=== PATIENT | female | born 1935 | race Caucasian/White ===

== ENCOUNTER → 2016-11-08 | Outpatient (CLI) | payer MEDICARE, OTHER ==
[~2016-11-08] MED LIST: AMIT10TA13 PO; CORTIS10A AU; LIOT5 PO; PSEU30TA PO; SYNT75TA PO; VENTAER INH; ZITHTAB PO
[2016-11-08 09:55] LABS: MEAN CORPUSCULAR HEMOGLOBIN 31.1 PG (27.0-34.0); MEAN CORPUSCULAR HGB CONC 34.2 % (32.0-36.0); PLATELET COUNT 221 TH/MM3 (150-450); RED BLOOD COUNT 4.06 MIL/MM3 (4.00-5.30); RED CELL DISTRIBUTION WIDTH 13.7 % (11.6-17.2); REVIEW FLAG FINAL; WHITE BLOOD COUNT 4.5 TH/MM3 (4.0-11.0)
[2016-11-08 10:28] LABS: ALKALINE PHOSPHATASE 96 U/L (45-117); ALT (GPT) 23 U/L (10-53); ANION GAP 7 MEQ/L (5-15); AST (GOT) 20 U/L (15-37); BICARBONATE 29.6 MEQ/L (21.0-32.0); BLOOD UREA NITROGEN 11 MG/DL (7-18); CHLORIDE 99 MEQ/L (98-107); GLOMERULAR FILTRATION RATE 74 ML/MIN (>89); GLUCOSE,FASTING 84 MG/DL (74-99); HDL CHOLESTEROL 76.1 MG/DL (40.0-60.0); LDL CHOLESTEROL 110 MG/DL (0-99); POTASSIUM 4.1 MEQ/L (3.5-5.1); SODIUM (NA) 136 MEQ/L (136-145); TOTAL BILIRUBIN ADULT 1.6 MG/DL (0.2-1.0)
== END ==
LOC: PLAB 07:29
PROVIDERS: ATTEND Internal Medicine Interventional Cardiology
DX: M79.1 Myalgia (principal); E78.5 Hyperlipidemia, unspecified; I25.10 Atherosclerotic heart disease of native coronary artery without angina pectoris; E03.9 Hypothyroidism, unspecified; Z79.899 Other long term (current) drug therapy; R06.02 Shortness of breath; Z09 Encounter for follow-up examination after completed treatment for conditions other than malignant neoplasm
CPT/HCPCS: 36415; 80053; 80061; 82248; 82550; 84443; 85027

== ENCOUNTER → 2017-03-22 | Outpatient (CLI) | payer MEDICARE, OTHER ==
[2017-03-22 13:30] LABS: AUTOMATED NEUTROPHIL # 2.2 TH/MM3 (1.8-7.7); BASOPHIL % 0.8 % (0.0-2.0); EOSINOPHIL # 0.2 TH/MM3 (0-0.4); EOSINOPHIL % 3.9 % (0.0-4.0); HEMATOCRIT 37.8 % (35.0-46.0); HEMO FLAGS DIFF FINAL; LYMPH % 29.1 % (9.0-44.0); LYMPHOCYTE # 1.2 TH/MM3 (1.0-4.8); MEAN CELL VOLUME 93.4 FL (80.0-100.0); MEAN CORPUSCULAR HEMOGLOBIN 30.4 PG (27.0-34.0); MEAN CORPUSCULAR HGB CONC 32.5 % (32.0-36.0); MONO % 11.5 % (0.0-8.0); NEUT % 54.7 % (16.0-70.0); PLATELET COUNT 225 TH/MM3 (150-450); RED BLOOD COUNT 4.05 MIL/MM3 (4.00-5.30); RED CELL DISTRIBUTION WIDTH 14.3 % (11.6-17.2); WHITE BLOOD COUNT 4.1 TH/MM3 (4.0-11.0)
[2017-03-22 14:27] LABS: ANION GAP 8 MEQ/L (5-15); AST (GOT) 25 U/L (15-37); BICARBONATE 28.4 MEQ/L (21.0-32.0); BLOOD UREA NITROGEN 13 MG/DL (7-18); CHLORIDE 100 MEQ/L (98-107); GLOMERULAR FILTRATION RATE 85 ML/MIN (>89); GLUCOSE,FASTING 84 MG/DL (74-99); POTASSIUM 4.1 MEQ/L (3.5-5.1); SODIUM (NA) 136 MEQ/L (136-145)
[2017-03-22 14:38] LABS: ALKALINE PHOSPHATASE 89 U/L (45-117); ALT (GPT) 25 U/L (10-53); HDL CHOLESTEROL 77.8 MG/DL (40.0-60.0); LDL CHOLESTEROL 112 MG/DL (0-99); TOTAL BILIRUBIN ADULT 1.2 MG/DL (0.2-1.0)
== END ==
LOC: PLAB 07:59
PROVIDERS: ATTEND Family Medicine
DX: M79.1 Myalgia (principal); E78.5 Hyperlipidemia, unspecified; I25.10 Atherosclerotic heart disease of native coronary artery without angina pectoris; E03.9 Hypothyroidism, unspecified
CPT/HCPCS: 36415; 80053; 80061; 84443; 85025

== ENCOUNTER → 2017-07-17 | Outpatient (CLI) | payer MEDICARE, OTHER ==
[2017-07-17 11:50] LABS: AUTOMATED NEUTROPHIL # 2.1 TH/MM3 (1.8-7.7); BASOPHIL % 0.6 % (0.0-2.0); EOSINOPHIL # 0.2 TH/MM3 (0-0.4); EOSINOPHIL % 3.9 % (0.0-4.0); HEMATOCRIT 37.2 % (35.0-46.0); HEMO FLAGS DIFF FINAL; LYMPH % 32.4 % (9.0-44.0); LYMPHOCYTE # 1.3 TH/MM3 (1.0-4.8); MEAN CORPUSCULAR HEMOGLOBIN 30.9 PG (27.0-34.0); MEAN CORPUSCULAR HGB CONC 33.6 % (32.0-36.0); MONO % 10.8 % (0.0-8.0); NEUT % 52.3 % (16.0-70.0); PLATELET COUNT 236 TH/MM3 (150-450); RED BLOOD COUNT 4.05 MIL/MM3 (4.00-5.30); RED CELL DISTRIBUTION WIDTH 14.4 % (11.6-17.2)
[2017-07-17 12:04] LABS: ANION GAP 6 MEQ/L (5-15); AST (GOT) 23 U/L (15-37); BICARBONATE 28.5 MEQ/L (21.0-32.0); BLOOD UREA NITROGEN 16 MG/DL (7-18); CHLORIDE 103 MEQ/L (98-107); GLOMERULAR FILTRATION RATE 75 ML/MIN (>89); SODIUM (NA) 137 MEQ/L (136-145)
[2017-07-17 12:22] LABS: ALKALINE PHOSPHATASE 98 U/L (45-117); ALT (GPT) 23 U/L (10-53); GLUCOSE,FASTING 83 MG/DL (74-99); HDL CHOLESTEROL 75.9 MG/DL (40.0-60.0); LDL CHOLESTEROL 110 MG/DL (0-99); TOTAL BILIRUBIN ADULT 1.4 MG/DL (0.2-1.0)
== END ==
LOC: PLAB 07:47
PROVIDERS: ATTEND Family Medicine
DX: M79.1 Myalgia (principal); E78.5 Hyperlipidemia, unspecified; I25.10 Atherosclerotic heart disease of native coronary artery without angina pectoris; E03.9 Hypothyroidism, unspecified
CPT/HCPCS: 36415; 80053; 80061; 84443; 85025

== ENCOUNTER → 2017-08-07 | Day surgery (SDC) | payer MEDICARE, OTHER ==
[~2017-08-07] MED LIST changes: +BUPIVACAINE/EPINEPHRINE 0.25% PF 30 ML VIAL INFIL ONE; +LACTATED RINGER'S 1000 ML INJ 1,000 ML ONE; +MIDAZOLAM HCL 2 MG/2 ML VIAL ONE; +PROPOFOL 200 MG/20 ML AMP IV ONE; +ceFAZolin 2 GM PREMIX 50 ML ONE
--- NOTE | 2017-08-07 13:44 | TN ---
cc: FELICITY LOZANO M.D. DATE OF SURGERY: 08/07/2017 PREOPERATIVE DIAGNOSIS Left inguinal hernia. POSTOPERATIVE DIAGNOSIS Left inguinal hernia. PROCEDURE Open repair of left inguinal hernia with mesh. SURGEON Dr. Felicity Lozano. ANALYSIS ANALYST Ines Ballard, MS III ANESTHESIA General. INDICATIONS 82-year-old woman with complaints of a left inguinal hernia. Plans are made for operative repair. INTRAOPERATIVE FINDINGS Consistent with left direct inguinal hernia. Estimated blood loss minimal. DESCRIPTION OF PROCEDURE IN DETAIL The patient was identified as Roque Adams, taken to the operating room and placed in the supine position. Sequential compression devices were placed on bilateral lower extremities. Following induction of adequate general anesthesia with a laryngeal mask the left groin was prepped and draped in usual sterile fashion with Betadine. Proposed incision was made with a marking pen, infiltrated with local anesthetic. Incision was carried out with scalpel. Hemostasis was controlled with electrocautery. Dissection continued posteriorly through Alice's fascia to the level of the external oblique fascia. More local anesthetic was placed beneath the external oblique fascial fibers. They were opened in their direction with scalpel and Metzenbaum scissor. Underlying ilioinguinal nerve branch was reflected inferiorly and avoided. The round ligament was identified, from surrounding tissues, divided between clamps and ligated with 2-0 Vicryl ligature. The obvious direct hernia defect was identified and protruding preperitoneal fat was reduced, held in position with interrupted [id number] 2-0 Vicryl suture. A piece of atrium ProLite mesh was cut, customized in size from a 3 x 6 inch piece and placed over the inguinal floor, held in position with interrupted Ethibond sutures. Sutures were placed above and below the pubic tubercle and the Kwabena's ligament and the shelving edge of the inguinal ligament into the internal oblique fascia. The mesh was tucked lateral beneath the external oblique fascial fibers. Irrigation was ensued. There was no evidence of bleeding. The remaining local anesthetic was placed within the wound. Ilioinguinal nerve branch was allowed to return to its normal anatomic position. External oblique fascia was closed with running 3-0 Vicryl suture. Single 3-0 Vicryl suture was placed in Alice's fascia. Skin was approximated with running 4-0 Monocryl subcuticular suture. Dressings were applied with Mastisol, half-inch brown Steri-Strips, gauze and Tegaderm. The patient tolerated the procedure without apparent complication. Sponge, needle and instrument counts were correct at the end of the case. MD GEO Heck/STEVIE /1:27 PM /1:32 PM
== END | disposition home or self-care (01) ==
LOC: ESDC 10:37
PROVIDERS: ATTEND Surgery Trauma Surgery
DX: K40.90 Unilateral inguinal hernia, without obstruction or gangrene, not specified as recurrent (principal)
CPT/HCPCS: 00830; 49505; C1781; J0690; J7120; J2250

== ENCOUNTER → 2017-11-06 | Outpatient (CLI) | payer MEDICARE, OTHER ==
[~2017-11-06] MED LIST changes: -BUPIVACAINE/EPINEPHRINE 0.25% PF 30 ML VIAL INFIL ONE; -LACTATED RINGER'S 1000 ML INJ 1,000 ML ONE; -MIDAZOLAM HCL 2 MG/2 ML VIAL ONE; -PROPOFOL 200 MG/20 ML AMP IV ONE; -ceFAZolin 2 GM PREMIX 50 ML ONE
[2017-11-06 09:53] LABS: HEMATOCRIT 37.4 % (35.0-46.0); MEAN CELL VOLUME 92.3 FL (80.0-100.0); MEAN CORPUSCULAR HGB CONC 34.7 % (32.0-36.0); MEAN PLATELET VOLUME 7.6 FL (7.0-11.0); PLATELET COUNT 243 TH/MM3 (150-450); RED BLOOD COUNT 4.05 MIL/MM3 (4.00-5.30); RED CELL DISTRIBUTION WIDTH 14.2 % (11.6-17.2); WHITE BLOOD COUNT 3.9 TH/MM3 (4.0-11.0)
[2017-11-06 10:17] LABS: ALBUMIN 3.6 GM/DL (3.4-5.0); BLOOD UREA NITROGEN 15 MG/DL (7-18); CALCIUM 9.5 MG/DL (8.5-10.1); CHLORIDE 103 MEQ/L (98-107); CREATININE 0.75 MG/DL (0.50-1.00); GLOMERULAR FILTRATION RATE 74 ML/MIN (>89); GLUCOSE,FASTING 87 MG/DL (74-99); SODIUM (NA) 137 MEQ/L (136-145)
[2017-11-06 10:18] LABS: CHOLESTEROL 209 MG/DL (120-200)
[2017-11-06 10:29] LABS: ALKALINE PHOSPHATASE 104 U/L (45-117); ALT (GPT) 24 U/L (10-53); AST (GOT) 22 U/L (15-37); CHOLESTEROL/ HDL RATIO 2.67 RATIO; HDL CHOLESTEROL 78.1 MG/DL (40.0-60.0); LDL CHOLESTEROL 108 MG/DL (0-99); TOTAL BILIRUBIN ADULT 1.5 MG/DL (0.2-1.0); TOTAL PROTEIN 6.9 GM/DL (6.4-8.2); TRIGLYCERIDES 114 MG/DL (42-150)
== END ==
LOC: PLAB 07:42
PROVIDERS: ATTEND Family Medicine
DX: M79.1 Myalgia (principal); E78.5 Hyperlipidemia, unspecified; I25.10 Atherosclerotic heart disease of native coronary artery without angina pectoris; E03.9 Hypothyroidism, unspecified; R10.30 Lower abdominal pain, unspecified
CPT/HCPCS: 36415; 80053; 80061; 84443; 85027

== ENCOUNTER → 2018-01-30 | Outpatient (CLI) | payer MEDICARE, OTHER ==
[2018-01-30 17:49] LABS: HEMATOCRIT 35.2 % (35.0-46.0); HEMOGLOBIN 12.3 GM/DL (11.6-15.3); MEAN CELL VOLUME 91.1 FL (80.0-100.0); MEAN CORPUSCULAR HEMOGLOBIN 31.8 PG (27.0-34.0); MEAN CORPUSCULAR HGB CONC 34.9 % (32.0-36.0); MEAN PLATELET VOLUME 7.6 FL (7.0-11.0); PLATELET COUNT 251 TH/MM3 (150-450); RED BLOOD COUNT 3.86 MIL/MM3 (4.00-5.30); WHITE BLOOD COUNT 5.7 TH/MM3 (4.0-11.0)
[2018-01-30 18:08] LABS: WESTERGREN SEDIMENTATION RATE 30 mm/hr (0-30)
== END ==
LOC: PLAB 14:26
PROVIDERS: ATTEND Family Medicine
DX: M25.50 Pain in unspecified joint (principal)
CPT/HCPCS: 36415; 85027; 85652; 86140

== ENCOUNTER → 2018-03-16 | Outpatient (CLI) | payer MEDICARE, OTHER ==
[2018-03-16 13:57] LABS: HEMOGLOBIN 12.9 GM/DL (11.6-15.3); MEAN CELL VOLUME 93.7 FL (80.0-100.0); MEAN CORPUSCULAR HEMOGLOBIN 30.9 PG (27.0-34.0); MEAN PLATELET VOLUME 7.6 FL (7.0-11.0); PLATELET COUNT 274 TH/MM3 (150-450); RED BLOOD COUNT 4.16 MIL/MM3 (4.00-5.30); RED CELL DISTRIBUTION WIDTH 14.8 % (11.6-17.2); WHITE BLOOD COUNT 6.2 TH/MM3 (4.0-11.0)
[2018-03-16 14:04] LABS: ALBUMIN 3.7 GM/DL (3.4-5.0); AST (GOT) 28 U/L (15-37); BICARBONATE 28.8 MEQ/L (21.0-32.0); BLOOD UREA NITROGEN 18 MG/DL (7-18); CALCIUM 9.4 MG/DL (8.5-10.1); CHLORIDE 104 MEQ/L (98-107); GLOMERULAR FILTRATION RATE 69 ML/MIN (>89); GLUCOSE,FASTING 83 MG/DL (74-99); SODIUM (NA) 138 MEQ/L (136-145)
[2018-03-16 14:06] LABS: CHOLESTEROL 222 MG/DL (120-200)
[2018-03-16 14:17] LABS: ALKALINE PHOSPHATASE 87 U/L (45-117); ALT (GPT) 28 U/L (10-53); CHOLESTEROL/ HDL RATIO 2.75 RATIO; HDL CHOLESTEROL 80.6 MG/DL (40.0-60.0); LDL CHOLESTEROL 108 MG/DL (0-99); TOTAL BILIRUBIN ADULT 1.7 MG/DL (0.2-1.0); TRIGLYCERIDES 168 MG/DL (42-150)
== END ==
LOC: PLAB 10:02
PROVIDERS: ATTEND Family Medicine
DX: M79.1 Myalgia (principal); E78.5 Hyperlipidemia, unspecified; I25.10 Atherosclerotic heart disease of native coronary artery without angina pectoris; E03.9 Hypothyroidism, unspecified; R10.30 Lower abdominal pain, unspecified
CPT/HCPCS: 36415; 80053; 80061; 84443; 85027